=== PATIENT | female | born 1960 | race Caucasian/White ===

== ENCOUNTER → 2016-05-28 | Outpatient (REF) | payer BC, OTHER ==
[2016-05-28 15:37] LABS: VITAMIN B12 LEVEL 659 PG/ML
[2016-05-28 15:39] LABS: FOLATE > 24.0 NG/ML
[2016-05-30 13:07] LABS: ALBUMIN % 62.4 % (55.8-66.1); GAMMA GLOBULIN % 17.2 % (11.1-18.8)
[2016-05-30 13:08] LABS: ALBUMIN 4.37 GM/DL (3.29-5.55)
[2016-06-01 08:06] LABS: VITAMIN E LEVEL 11.3 mg/L (5.3-16.8)
[2016-06-02 00:07] LABS: SJOGREN'S ANTI SS-A <0.2 AI (0.0-0.9); SJOGREN'S ANTI SS-B <0.2 AI (0.0-0.9)
== END ==
LOC: M LABNEURO 13:16
PROVIDERS: ATTEND Psychiatry & Neurology Neurology
DX: R20.9 Unspecified disturbances of skin sensation (principal); Z13.1 Encounter for screening for diabetes mellitus; Z13.29 Encounter for screening for other suspected endocrine disorder